=== PATIENT | female | born 1995 | race Two or more races ===

== ENCOUNTER 2021-01-19 08:57 | Emergency (ER) | payer BC, MEDICAID ==
[~2021-01-19] VITALS: Ht 165.1 cm; Wt 81.6 kg
[2021-01-19 11:13] VITALS: BP 128/69
[2021-01-19] MEDS ORDERED: ONDANSETRON ODT 4 MG TAB PO ONE (11:30)
[2021-01-19] MEDS ORDERED: ACETAMINOPHEN/CODEINE#3 (300/30mg) TAB PO ONE (11:30)
== END 2021-01-19 12:02 | disposition home or self-care (01) ==
LOC: ER 08:57
DX: S52.092A Other fracture of upper end of left ulna, initial encounter for closed fracture (principal); W01.0XXA Fall on same level from slipping, tripping and stumbling without subsequent striking against object, initial encounter; Y93.89 Activity, other specified; Y92.89 Other specified places as the place of occurrence of the external cause; Y99.8 Other external cause status
CPT/HCPCS: 29105; 73090; 81025; 99284; Q0162

== ENCOUNTER 2022-06-22 09:05 | Emergency (ER) | payer MEDICAID ==
[~2022-06-22] VITALS: Ht 165.1 cm; Wt 74.4 kg
[~2022-06-22 09:05] MED LIST: CEPH-510 PO
[2022-06-22 15:07] VITALS: BP 103/62
== END 2022-06-22 11:59 | disposition left against medical advice (07) ==
LOC: ER 09:05
DX: S01.81XD Laceration without foreign body of other part of head, subsequent encounter (principal); Z53.21 Procedure and treatment not carried out due to patient leaving prior to being seen by health care provider; X58.XXXD Exposure to other specified factors, subsequent encounter

== ENCOUNTER 2022-10-01 15:19 | Observation (INO) | payer MEDICAID ==
[~2022-10-01] VITALS: Ht 165.1 cm; Wt 77.3 kg
[2022-10-01 15:43] VITALS: BP 117/87
[2022-10-01] MEDS ORDERED: PREN27TA7 OR (16:53)
== END 2022-10-01 17:43 | disposition home or self-care (01) ==
LOC: ER 15:19 → UNDOADMOB 15:50 → LDRP 15:50
PROVIDERS: ADMIT Obstetrics & Gynecology; ATTEND Obstetrics & Gynecology
DX: O26.893 Other specified pregnancy related conditions, third trimester (principal); R10.30 Lower abdominal pain, unspecified; Z3A.34 34 weeks gestation of pregnancy; Z87.891 Personal history of nicotine dependence
CPT/HCPCS: 59025; 81002; 84112; 94760; 99284; G0378; Q0114

== ENCOUNTER 2024-05-04 14:22 | Observation (INO) | payer MEDICAID ==
[~2024-05-04 14:22] MED LIST changes: +PREN27TA7 OR
--- NOTE | 2024-05-04 15:37 | DVH ---
LIMITED OB ULTRASOUND > 14 WKS: HISTORY: R/O abruption position TECHNIQUE: Multiple real-time grayscale images of the gravid uterus with duplex Doppler color flow an d M-mode spectral analysis. TRANSDUCER: Transabdominal FINDINGS/IMPRESSION: heart rate 145 beats per minute MVP of 6.9 cm Cervix measures 3 cm. Cephalic Presentation Anterior Placenta without previa or abruption.
--- NOTE | 2024-05-05 15:25 | DVHDS2 ---
Physician Discharge Progress N Final Diagnosis: abd pain s/p trauma Operations or Procedures: Operations or Procedures nst,sono Condition on Discharge: Good Disposition: Home Discharge Instructions: Diet: Regular Activity: Light activity Medications: na Follow Up Care: Specialist: 2d Discharge Statement: "Patient was advised to return to the ER or call 911 if any headaches, dizziness, shortness of breath, chest pain, abdominal pain, bleeding, fevers, or worsening of medical condition. Patient was counseled about treatment plan, medications, possible side effects, patientverbalized understanding. All questions were answered to the best of my ability. This discharge took greater then 30 minutes in planning, reviewing documentation, counseling the patient, and discussing with other team members." Visit Coding OBGYN Date of Service: May 04, 2024 Billing Provider: NELLY RITCHIE DO OFFICE MESSENGER Common Visit Codes: 62329-QWC/OBS SAME DATE (HIGH) OFFICE MESSENGER Procedure Codes: 98185-04- NON-STRESS TEST NELLY RITCHIE DO May 05, 2024 15:25
== END 2024-05-04 15:51 | disposition home or self-care (01) ==
LOC: LDRP 14:22
PROVIDERS: ADMIT Obstetrics & Gynecology; ATTEND Obstetrics & Gynecology
DX: O62.9 Abnormality of forces of labor, unspecified (principal); Z3A.29 29 weeks gestation of pregnancy; Z79.899 Other long term (current) drug therapy
CPT/HCPCS: 59025; 76815; 81002; 94760; G0378